=== PATIENT | male | born 1970 | race African-American/Black ===

== ENCOUNTER 2025-03-13 08:29 | Emergency (ER) | payer MEDICARE, MEDICAID ==
[~2025-03-13] VITALS: Ht 188 cm; Wt 190.5 kg
[2025-03-13 08:43] VITALS: TEMP 98
[2025-03-13] MEDS ORDERED: SODIUM CHLORIDE FLUSH 10 ML SYR IV PRN (09:15)
[2025-03-13 09:40] LABS: BASOPHILS % 0.8 % (0.0-1.0); EOSINOPHILS % 2.4 % (0.0-6.0); LYMPHOCYTES % 27.3 % (18.0-39.1); MONOCYTES % 5.3 % (4.4-11.3); NEUTROPHILS % 64.0 % (38.7-80.0); RED CELL DISTRIBUTION WIDTH 13.6 % (11.7-14.4)
[2025-03-13 10:00] VITALS: PULSE 76; RESP 12; O2SAT 97
[2025-03-13 10:14] LABS: EST GLOMERULAR FILTRATION RATE 89.0 ML/MIN (>=60)
[2025-03-13] MEDS ORDERED: ELIQUIS5 MG PO (10:34)
== END 2025-03-13 11:02 | disposition home or self-care (01) ==
LOC: ER 08:47
DX: R00.2 Palpitations (principal); I10 Essential (primary) hypertension; E11.65 Type 2 diabetes mellitus with hyperglycemia; I48.91 Unspecified atrial fibrillation
CPT/HCPCS: 36415; 71045; 80053; 83036; 84484; 85025; 93005; 94760; 99284